=== PATIENT | male | born 1990 | race Caucasian/White ===

== ENCOUNTER 2022-01-21 13:08 | Emergency (ER) | payer OTHER ==
[2022-01-21 13:46] VITALS: BP 149/79; PULSE 121; TEMP 99.1; BMI 30.5
[2022-01-21] MEDS ORDERED: BEBTELOVIMAB (EUA) 175 MG/2 ML VIAL IVPUSH ONE (13:59)
[2022-01-21] MEDS ORDERED: ACETAMINOPHEN 500 MG TABLET (FP) PO ONE (14:05)
[2022-01-21] MEDS ORDERED: ACETAMINOPHEN 500 MG TABLET (FP) ONE (14:24)
== END 2022-01-21 16:15 | disposition home or self-care (01) ==
LOC: JER 13:08
PROC: 3E033GC Introduction of Other Therapeutic Substance into Peripheral Vein, Percutaneous Approach (ICD-10-PCS; principal; 2022-01-21)
DX: U07.1 COVID-19 (principal)
CPT/HCPCS: 96374; 99284-25; M0222; Q0222